=== PATIENT | female | born 1995 | race Caucasian/White ===

== ENCOUNTER 2016-03-11 09:22 | Emergency (ER) | payer OTHER ==
[~2016-03-11] VITALS: Ht 175.3 cm; Wt 68.2 kg
[~2016-03-11 09:22] MED LIST: EFFEXOR XR75 MG/CAP PO; NEXPLANON68 MG ID
[2016-03-11 09:23] VITALS: BP 137/80; PULSE 941; TEMP 97.9
== END 2016-03-11 09:56 | disposition home or self-care (01) ==
LOC: COL.ER 09:22
DX: S60.440A External constriction of right index finger, initial encounter (principal); W49.04XA Ring or other jewelry causing external constriction, initial encounter

== ENCOUNTER 2016-08-06 18:25 | Emergency (ER) | payer OTHER | END 2016-08-06 18:53 | disposition home or self-care (01) | LOC: COL.ER 18:25 | DX: Z02.89 Encounter for other administrative examinations (principal) | CPT/HCPCS: J0696 ==

== ENCOUNTER → 2016-08-06 | Outpatient (REF) | payer OTHER ==
[~2016-08-06] VITALS: Ht 175.3 cm; Wt 72.7 kg
[2016-08-06 15:47] VITALS: BP 137/85; PULSE 87; TEMP 98.6
[2016-08-06 18:09] LABS: HIV 1/2 Antibodies Non-Reactive; HIV-1p24 Antigen Non-Reactive
[2016-08-06 19:20] LABS: CHLAMYDIA/TRACH by PCR Female NOT DETECTED; NEISSERIA GON by PCR Female NOT DETECTED
== END ==
LOC: COL.ER 15:43 → EDSTATUS 15:55
PROVIDERS: Emergency Medicine
DX: Z02.89 Encounter for other administrative examinations (principal)

== ENCOUNTER → 2019-09-02 | Outpatient (CLI) | payer OTHER | LOC: ZCOL.LAB 12:25 | DX: U07.1 COVID-19 (principal) ==